=== PATIENT | female | born 1980 | race Caucasian/White ===

== ENCOUNTER → 2017-02-08 | Outpatient (CLI) | payer OTHER ==
[~2017-02-08] MED LIST: GADOBUTROL 10 ML VIAL IVP ONE
== END ==
LOC: FIMAGING 07:54
PROVIDERS: ATTEND Surgery
DX: N28.1 Cyst of kidney, acquired (principal)
CPT/HCPCS: A9585

== ENCOUNTER 2018-09-26 14:31 | Emergency (ER) | payer OTHER ==
[2018-09-26] MEDS ORDERED: ONDANSETRON 4 MG/2 ML VIAL IVP ONE (14:53)
[2018-09-26] MEDS ORDERED: NS 1,000 ML IV ONE (14:53)
[2018-09-26] MEDS ORDERED: HYDROmorphONE/DILAUDID 2 MG/ML INJ IVP ONE (14:53)
--- NOTE | 2018-09-26 14:56 | EDPHY ---
H & P Stated Complaint: EPIGASTRIC PAINSTARTING SUDDENLY AT 1300 Time Seen by Provider: 09/26/18 14:48 HPI/ROS: CHIEF COMPLAINT: Epigastric pain and nausea HISTORY OF PRESENT ILLNESS: Patient is a 38-year-old female with a history of gallstone pancreatitis and cholecystectomy 2 years ago. Prior to that she had a vagotomy due to peptic ulcer disease and a incisional hernia repair. Over the last 2 years she has had four episodes of intense epigastric pain however they have typically resolved after about 30 min. Today it is not. She feels nauseous but has not vomited. She has not had diarrhea. No fever. No recent illness. No chest pain or shortness of breath. No radiation of the pain. She states that typically the pain is after eating "crappy food". Today she had a hot dog about an hour before the pain began. She describes the pain as sharp and severe. Severity: Severe Modifying factors: None REVIEW OF SYSTEMS: Constitutional: denies: chills, fever, recent illness, recent injury EENTM: denies: blurred vision, double vision, nose congestion Respiratory: denies: cough, shortness of breath Cardiac: denies: chest pain, irregular heart rate, lightheadedness, palpitations Gastrointestinal/Abdominal: See HPI Genitourinary: denies: dysuria, frequency, hematuria, pain Musculoskeletal: denies: joint pain, muscle pain Skin: denies: lesions, rash, jaundice, bruising Neurological: denies: headache, numbness, paresthesia, tingling, dizziness, weakness Hematologic/Lymphatic: denies: blood clots, easy bleeding, easy bruising Immunologic/allergic: denies: HIV/AIDS, transplant 10 systems reviewed and negative except as noted EXAM: GENERAL: Well-appearing, well-nourished and in no acute distress. HEAD: Atraumatic, normocephalic. EYES: Pupils equal round and reactive to light, extraocular movements intact, sclera anicteric, conjunctiva are normal. ENT: TMs normal, nares patent, oropharynx clear without exudates. Moist mucous membranes. NECK: Normal range of motion, supple without lymphadenopathy or JVD. LUNGS: Breath sounds clear to auscultation bilaterally and equal. No wheezes rales or rhonchi. HEART: Regular rate and rhythm without murmurs, rubs or gallops. ABDOMEN: Mild epigastric tenderness, negative Michaud's, normoactive bowel sounds. No guarding, no rebound. No masses appreciated. BACK: No CVA tenderness, no spinal tenderness, step-offs or deformities EXTREMITIES: Normal range of motion, no pitting or edema. No clubbing or cyanosis. NEUROLOGICAL: Cranial nerves II through XII grossly intact. Normal speech, normal gait. 5/5 strength, normal movement in all extremities, normal sensation , normal reflexes PSYCH: Normal mood, normal affect. SKIN: Warm, dry, normal turgor, no visible rashes or lesions. Source: Patient, Family Exam Limitations: No limitations - Personal History LMP (Females 10-55): 15-21 Days Ago Current Tetanus Diphtheria and Acellular Pertussis (TDAP): Yes - Medical/Surgical History Hx Asthma: No Hx Chronic Respiratory Disease: No Hx Diabetes: No Hx Cardiac Disease: No Hx Renal Disease: No Hx Cirrhosis: No Hx Alcoholism: No Hx HIV/AIDS: No Other PMH: VAGOTOMY DUE TO PEPTIC ULCER DISEASE, HERNIA SURGERY,CHOL, PANCREATITIS - Family History Significant Family History: No pertinent family hx - Social History Smoking Status: Never smoked Alcohol Use: Sober Drug Use: None Constitutional: Initial Vital Signs Temperature (C) 36.6 C 09/26/18 14:33 Heart Rate 84 09/26/18 14:33 Respiratory Rate 16 09/26/18 14:33 Blood Pressure 132/82 H 09/26/18 14:33 O2 Sat (%) 98 09/26/18 14:33 O2 Delivery Mode Room Air Allergies/Adverse Reactions: Sulfa (Sulfonamide Antibiotics) Adverse Reaction (Intermediate, Verified 14:50) Vomiting PEANUTS Allergy (Severe, Uncoded 08/07/09 11:35) Anaphylaxis Home Medications: Medication Instructions Recorded NK [No Known Home Meds] 09/26/18 Medical Decision Making - Diagnostics EKG Interpretation: An EKG obtained and was read and documented in trace view. Please see trace view for full reading and report. Sinus rhythm, no acute ischemic changes, no signs of right heart strain. 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 we discussed the lab and imaging results. Overall they are very reassuring. The patient's pain is gone and she has a nontender exam. We discussed her slightly elevated LFTs. They are similar to 2017 when she was told she had pancreatitis. Her lipase was normal at that time as well. She also had an MRCP at the time that was normal. She thinks that she is feeling better enough that she wants to go home and follow up with Dr. Mclain as an outpatient tomorrow or Thursday. He has been the one primarily treating her for these symptoms in the past. I will try to page him today to ensure follow-up 4:20 p.m. discussed the case with Dr. Mclain's PA who will follow up with the patient tomorrow. The patient is happy with this plan. 4:35 p.m. I discussed the case with Dr. Mclain who agrees with the plan and will follow up tomorrow. He also recommends that she follow up with Gastroenterology. I will give her Dr. Adame referral. In the past he has referred her to a Dr. Zamora at a [facility] as well. 5:30 p.m. the patient is feeling much better and says that she is ready to go home. She is tolerating p. O.. She is asking for a take-home pack of Vicodin in case the pain returns. She will follow up with Dr. Mclain tomorrow. Abdominal exam nontender. Differential Diagnosis: Partial list of the Differential diagnosis considered include but were not limited to; gastric pain, pancreatitis, common duct stone and although unlikely based on the history and physical exam, I also considered pneumonia, acute coronary disease peptic ulcer disease. - Data Points Laboratory Results: Laboratory Results 09/26/18 14:46 09/26/18 14:46 Medications Given: Discontinued Medications Hydrocodone Bitart/Acetaminophen (Mongo 5/325mg Prepack#6) 1 btl TAKEHOME EDNOW ONE Stop: 09/26/18 17:33 Last Admin: 09/26/18 17:37 Dose: 1 btl Hydromorphone HCl (Dilaudid) 0.5 mg IVP EDNOW ONE Stop: 09/26/18 14:54 Last Admin: 09/26/18 15:01 Dose: 0.5 mg Sodium Chloride (Ns) 1,000 mls @ 0 mls/hr IV EDNOW ONE; Wide Open PRN Reason: Protocol Stop: 09/26/18 14:54 Last Admin: 09/26/18 15:01 Dose: 1,000 mls Ondansetron HCl (Zofran) 4 mg IVP EDNOW ONE Stop: 09/26/18 14:54 Last Admin: 09/26/18 15:01 Dose: 4 mg Departure - Departure Disposition: Home, Routine, Self-Care Clinical Impression: Epigastric pain, Transaminitis Condition: Fair Instructions: Hydrocodone/Acetaminophen (By mouth), Epigastric Pain (ED) Referrals: Krish Larson DO [Primary Care Provider] - As per Instructions Arsenio Mclain MD [Medical Doctor] - 1-2 days without fail Leon Adame MD [Medical Doctor] - 5-7 days, call for appt.
[2018-09-26 15:08] LABS: PLATELET COUNT 205 10^3/uL (150-400)
[2018-09-26 15:18] LABS: INR 0.99 (0.83-1.16); PROTIME(PATIENT) 12.7 SEC (12.0-15.0)
[2018-09-26] MEDS ORDERED: IOPAMIDOL (ISOVUE-300) 100 ML BTL ONE (15:20)
--- NOTE | 2018-09-26 15:25 | CPEKG ---
Test Reason : OPEN Blood Pressure : / mmHG Vent. Rate : 082 BPM Atrial Rate : 081 BPM P-R Int : 156 ms QRS Dur : 076 ms QT Int : 371 ms P-R-T Axes : 025 053 024 degrees QTc Int : 434 ms Sinus rhythm Confirmed by Joan Evans ([id number]) on 09/26/2018 3:24:54 PM Referred By: JOAN EVANS Confirmed By:Joan Evans
[2018-09-26 17:24] VITALS: BP 100/77
[2018-09-26] MEDS ORDERED: HYDROCOD/APAP 5/325 PREPACK#6 BTL TAKEHOME ONE (17:32)
== END 2018-09-26 17:53 | disposition home or self-care (01) ==
DX: R10.13 Epigastric pain (principal); R74.0 Nonspecific elevation of levels of transaminase and lactic acid dehydrogenase [LDH]; E86.9 Volume depletion, unspecified
CPT/HCPCS: 96374; J1170; J2405; Q9967